=== PATIENT | female | born 1990 | race Caucasian/White ===

== ENCOUNTER 2017-01-22 18:47 | Emergency (ER) | payer BC, OTHER ==
[2017-01-22 18:53] VITALS: BP 112/72; PULSE 56; RESP 16; TEMP 98.4; O2SAT 98
--- NOTE | 2017-01-22 19:41 | EDPHY ---
HPI/HX/ROS/PE/MDM Narrative: CHIEF COMPLAINT: Left foot cellulitis. HPI: The patient is a 26-year-old who presents with left foot cellulitis. The patient developed foot pain and swelling over the past week. She is unsure of the cause. She saw her PA today who started her on Doxycycline. She was unable to receive an injection due to Cephalexin and Sulfate allergy. She was told to come to the ED if her foot increased in pain or swelling. Since taking first Doxycycline at 2:30 p.m. Since first dose of antibiotics, her foot has increased in swelling and redness. Patient notes chills, no fever. REVIEW OF SYSTEMS: Aside from elements discussed in the HPI, a comprehensive 10-point review of systems was reviewed and is negative. PMH: Denies. SOCIAL HISTORY: Mother at bedside. PHYSICAL EXAM: General: Patient is alert, in no acute distress. ENT: Eyes are normal to inspection. ENT inspection normal. Neck: Normal inspection. Full range of motion. Respiratory: No respiratory distress. Breath sounds normal bilaterally. Cardiovascular: Regular rate and rhythm. Strong peripheral pulses. Abdomen: The abdomen is nontender to palpation. There are no peritoneal signs. There are normal bowel sounds. Back: Normal to inspection. No tenderness to palpation. Skin: No rash. Extremities: 10cm area of Cellulitis to the lateral dorsal aspect of left foot. No lymphatic streaking. Between 4th and 5th digits there is weeping and swelling. Full range of motion. Neuro: Oriented x3. Normal motor function. Normal sensory function. ED Course: Patient presents with left foot cellulitis. She took first dose of Doxycycline at 2:30 p.m. today. Since first dose her foot has increased in redness and swelling. I discussed IV antibiotics with the patient. Patient has not had 12 hours of antibiotics. I recommend she continue antibiotics at home. Patient was given strict return precautions. MDM: This is a young healthy woman with mild foot cellulitis. She was told to go to the ED to get an IM or IV antibiotic in addition to her oral doxycycline. I see no signs of systemic illness or lyhmphatic streaking, so I do not think an IV antibiotic is indicated. Given her allergies, we would need to give her vancomycin, and this seems a rather large gun for this issue. I did offer this medication but patient is comfortable with the plan for re-evaluation tomorrow in the ED and continuing her doxycycline. I think it is too early to call this a treatment failure. General Time Seen by Provider: 01/22/17 19:25 Initial Vital Signs: Initial Vital Signs Temperature (C) 36.9 C 01/22/17 18:49 Heart Rate 56 L 01/22/17 18:49 Respiratory Rate 16 01/22/17 18:49 Blood Pressure 112/72 01/22/17 18:49 O2 Sat (%) 98 01/22/17 18:49 O2 Delivery Mode Room Air Allergies/Adverse Reactions: cephalexin Allergy (Intermediate, Verified 01/22/17 18:53) Hives Sulfa (Sulfonamide Antibiotics) Allergy (Intermediate, Verified 01/22/17 18:53) Hives Home Medications: Medication Instructions Recorded Doxycycline Hyclate [Vibramycin 100 mg PO 01/22/17 100 MG (*)] Departure - Departure Disposition: Home, Routine, Self-Care Clinical Impression: Cellulitis and abscess of foot Condition: Good Instructions: Cellulitis (ED) Additional Instructions: Continue taking your antibiotics as directed. Try elevating the foot to help with swelling. Please return to the Emergency Department if you develop severe chills, fever, increased pain, swelling, or redness. Referrals: ANNEL FARRIS [Primary Care Provider] - As per Instructions Report Scribed for: Johan Mir Report Scribed by: Fozia Maldonado Date of Report: 01/22/17 Time of Report: 19:41 Physician Review and Approval Statement: Portions of this note were transcribed by a chief medical physicist. I personally performed the history, physical exam, and medical decision-making; and confirmed the accuracy of the information in the transcribed note.
== END 2017-01-22 20:03 | disposition home or self-care (01) ==
DX: L03.116 Cellulitis of left lower limb (principal); L02.612 Cutaneous abscess of left foot